=== PATIENT | male | born 1975 | race Caucasian/White ===

== ENCOUNTER 2017-03-14 16:22 | Emergency (ER) | payer MEDICAID ==
[2017-03-14 16:25] VITALS: BP 128/76; PULSE 72; RESP 12; TEMP 97.9; O2SAT 99
[2017-03-14 18:14] LABS: BLOOD, URINE NEG (NEG); COMMENT (UR) CULT NOT INDICATED; CULTURE IF INDICATED CULT NOT INDICATED; GLUCOSE,URINE NEG (NEG); KETONE, URINE NEG (NEG); MUCUS URINE FEW /lpf (OCC); NITRITE,URINE NEG (NEG); PH, URINE 6.5 (5.0-8.5); SQUAMOUS EPITHELIAL CELL URINE <1 /hpf (0-5); URINE COLOR YELLOW (YELLW/STRAW)
--- NOTE | 2017-03-14 18:56 | PD ---
HPI Chief Complaint: Complaint Time Seen by Provider: 18:45 Travel History International Travel<30 days: No Contact w/Intl Traveler<30days: No Traveled to known affect area: No History of Present Illness HPI 41-year-old male here for evaluation of left-sided testicular pain. The patient reports that the pain started 2 days ago, is constant, worse today. He states that he went to [facility] where they did an ultrasound, however he wasn't really told what was going on. He denies trauma. No urinary symptoms. He is sexually active with one partner of 2 months. No history of STD. No fevers or chills. Pain is moderate, sharp, constant, worse with movement and palpation. PFSH Past Medical History Medical History: Denies Significant Hx Past Surgical History Other Surgery: Yes ("RIGHT SHOULDER AND CLAVICLE") Social History Alcohol Use: No Tobacco Use: Yes (1/2 PPD) Substance Use: No Allergies-Medications (Allergen,Severity, Reaction): Coded Allergies: No Known Allergies (Unverified , 03/14/17) Reported Meds & Prescriptions Reported Meds & Active Scripts Active No Active Prescriptions or Reported Medications Review of Systems Except as stated in HPI: all other systems reviewed are Neg Physical Exam Narrative GENERAL: Well-developed, well-nourished, comfortable, no apparent distress. GASTROINTESTINAL: Abdomen soft, non-tender, nondistended. No hernias. : Normal-appearing external genitalia without skin color changes or obvious swelling. At the base of the left testicle there is a firm nodule that is tender. No other testicular masses. Normal cremasterics reflex bilaterally. No hernias. PSYCHIATRIC: Appropriate mood and affect; insight and judgment normal. Data Data Last Documented VS Vital Signs Date Time Temp Pulse Resp B/P (MAP) Pulse Ox O2 Delivery O2 Flow Rate FiO2 03/14/17 16:25 97.9 72 12 128/76 (93) 99 Orders Orders Urinalysis - C+S If Indicated (03/14/17 16:50) Us Testicles W Doppler (03/14/17 ) Gc And Chlamydia Pcr (03/14/17 18:51) Labs Laboratory Tests Test 03/14/17 17:20 03/14/17 19:15 Urine Color YELLOW Urine Turbidity CLEAR Urine pH 6.5 Urine Specific Kendrick 1.030 Urine Protein TRACE mg/dL Urine Glucose (UA) NEG mg/dL Urine Ketones NEG mg/dL Urine Occult Blood NEG Urine Nitrite NEG Urine Bilirubin NEG Urine Urobilinogen 4.0 MG/DL Urine Leukocyte Esterase NEG Urine RBC 1 /hpf Urine WBC LESS THAN 1 /hpf Urine Squamous Epithelial Cells <1 /hpf Urine Mucus FEW /lpf Microscopic Urinalysis Comment CULT NOT INDICATED MDM Medical Decision Making Medical Screen Exam Complete: Yes Emergency Medical Condition: Yes Differential Diagnosis Epididymitis, orchitis, testicular torsion, STI, hydrocele, varicocele Narrative Course Vital signs are within normal limits. UA is not suggestive of UTI. Scrotal ultrasound: CONCLUSION: 1. Both testicles and epididymal heads are sonographically normal. No hydroceles or varicoceles. 2. There is a 1.5 x 1.0 x 0.7 cm hypoechoic area in in the left posterior scrotal wall corresponding to the area of palpable abnormality. Statistically, most extratesticular scrotal lesions are benign. This lesion is well- circumscribed and shows minimal vascularity with no aggressive features. I would recommend a follow up in one month to insure stability, however. Normal and symmetric blood flow was also noted on ultrasound. Patient was made aware of ultrasound findings. At this point I believe he is stable for discharge home with outpatient follow-up with a urologist this week. I will give him the name of the urologist on-call with whom to follow-up with. I will also give him a prescription for some pain medication as well as advised the patient to use ibuprofen for pain. He was informed on when to return to the emergency department. He verbalizes understanding and agreement with plan. Diagnosis Primary Impression: Scrotal mass Referrals: Yariel Thibodeaux DO 3 days Urologist Additional Instructions: Follow-up with urologist Dr. Thibodeaux or a urologist of your choice this week. Return to the emergency department for worsening symptoms or any other concerns. Scripts Tramadol (Tramadol) 50 Mg Tab 50 MG PO Q8H Y for PAIN, #12 TAB 0 Refills Prov: Arley Henderson MD 03/14/17 Disposition: 01 DISCHARGE HOME Condition: Stable Arley Henderson MD Mar 14, 2017 18:56
--- NOTE | 2017-03-14 19:40 | RADRPT ---
EXAM DATE/TIME: 03/14/2017 18:04 [facility] COMPARISON: No previous studies available for comparison. INDICATIONS : Testicular pain. MEDICAL HISTORY : None. SURGICAL HISTORY : None. ENCOUNTER: Initial ACUITY: 3 days PAIN SCORE: 10/10 LOCATION: Bilateral testicles. MEASUREMENTS: RIGHT TESTICLE: 5.1 x 2.7 x 2.3cm LEFT TESTICLE: 5.0 x 3.1 x 2.3cm FINDINGS: RIGHT TESTICLE: Homogeneous echotexture without intra or extratesticular mass. Blood flow is symmetric and within no rmal limits. No hydrocele or varicocele. Epididymis is within normal limits. LEFT TESTICLE: Homogeneous echotexture without intra or extratesticular mass. Blood flow is symmetric and within no rmal limits. No hydrocele or varicocele. Epididymis is within normal limits. SCROTUM: Palpable area on the posterior scrotal wall measures 1.5 x 1.0 x 0.7 cm and shows a hypoechoic well-c ircumscribed region with minimal regional vascularity. CONCLUSION: 1. Both testicles and epididymal heads are sonographically normal. No hydroceles or varicoceles. 2. There is a 1.5 x 1.0 x 0.7 cm hypoechoic area in in the left posterior scrotal wall corresponding to the area of palpable abnormality. Statistically, most extratesticular scrotal lesions are benign. This lesion is well-circumscribed and shows minimal vascularity with no aggressive features. I would recommend a follow up in one month to insure stability, however. Trenton Wynn MD on March 14, 2017 at 19:34 Board Certified Radiologist. This report was verified electronically.
[2017-03-14] MEDS ORDERED: TRAM50TA PO (19:49)
[2017-03-14 23:50] LABS: CHLAMYDIA PCR NOT DETECTED (NOT DETECT); NEISSERIA PCR NOT DETECTED (NOT DETECT)
== END 2017-03-14 20:05 | disposition home or self-care (01) ==
LOC: NEPD 16:22
DX: R22.2 Localized swelling, mass and lump, trunk (principal); F17.200 Nicotine dependence, unspecified, uncomplicated
CPT/HCPCS: 76870; 81001; 87491; 87591; 93975